=== PATIENT | male | born 1945 | race Caucasian/White ===

== ENCOUNTER → 2017-03-08 | Outpatient (CLI) | payer MEDICARE, BC ==
[~2017-03-08] MED LIST: ASPIRIN81 M1 PO; FISH OIL 1,001000 MG PO; LISINOPRIL PO; MULTIPLE VITAMI1 T11 PO; NATURAL VITA400 UNI2 PO; NEXIUM PO; PRILOSEC40 MG PO; VITAMIN D400 UNI1 PO; ZOCOR PO
--- NOTE | ~2017-03-08 | US5 ---
[facility] A Service of [facility] RADIOLOGY TEXT RESULTS PATIENT: ALIN SHAW LOCATION: [facility] : 49 UNIT #: [id number] AGE: [address]: JW CASTELLANOS MD SEX: M ORDER DR: [id number] [place], [place] [address] [id number] O MR#: [id number] Acc #: [id number] NAME: ALIN SHAW : 1945 SEX: M STUDY DATE/TIME: 03/08/2017 10:04 UNIT: US ROOM: STUDY DESCRIPTION: US Abdominal Complete Attending Physician: Jw Castellanos M.D. Referring Physician: Jw Castellanos M.D. Ordering Physician: Jw Castellanos M.D. Primary Care Physician: Jw Castellanos M.D. MEDICAL IMAGING REPORT This report is preliminary unless electronic signature is present EXAM Abdominal ultrasound. INDICATION Elevated liver enzyme levels for the past year. PROCEDURE Martinez-scale and Doppler imaging of the abdomen. COMPARISON Comparison is 05/04/2014 FINDINGS Visualized portions of pancreas unremarkable. Visualized portions abdominal aorta and inferior vena cava unremarkable. Liver has increased echotexture compared with the right kidney. No liver mass seen on submitted images. Right kidney measures 11.9 cm. No hydronephrosis. Unremarkable gallbladder. Common duct measures 3 mm. Right kidney measures 14.2 cm. Liver measures 17.1 cm. Spleen measures 13 cm. Left kidney measures 12.9 cm. No hydronephrosis. IMPRESSION 1. Increased liver echotexture most in keeping with steatosis. 2. Otherwise negative abdominal ultrasound. Dictated by... Bryce Genao M.D. THIS IS AN ELECTRONICALLY VERIFIED REPORT Bryce Genao M.D. at 03/09/2017 7:07 AM EED/tmw [facility] A Service of [facility] RADIOLOGY TEXT RESULTS PATIENT: ALIN SHAW LOCATION: [facility] : 49 UNIT #: [id number] AGE: [address]: JW CASTELLANOS MD SEX: M ORDER DR: TD: 03/08/2017 15:00 JOB #: [id number] MEDICAL IMAGING REPORT Page 1 of 1 COPY
== END | disposition home or self-care (01) ==
LOC: CGUS 09:42
DX: R10.30 Lower abdominal pain, unspecified (principal)
CPT/HCPCS: 76700